=== PATIENT | male | born 1980 | race Caucasian/White ===

== ENCOUNTER → 2024-02-18 | Emergency (ER) | payer OTHER, SELFPAY ==
--- NOTE | 2024-02-18 07:40 | EDS_ITS ---
HPI History of Present Illness Informant: patient Narrative Narrative: Patient is a 43-year-old male with no reported significant past medical history. He reports he is right-hand dominant. He states he was at work roughly 1 hour ago when he was using a staple gun to attach plastic to an object. He states that he was holding the plastic with his left hand and as he went to use the stabled on his right his hand slipped and he put the staple into his left thumb. He denies any numbness tingling weakness or history of immunosuppression. He is unsure of his tetanus status. He informed the supervisors of the injury and with concern that it would be difficult to remove the staple or that he may need his tetanus updated he was sent to the hospital for evaluation. ROS ROS ED Constitutional Constitutional ED: Denies chills or fever(s) ENT ENT ED: Denies sore throat Cardiovascular Cardiovascular: Denies chest pain Respiratory/Chest Respiratory/Chest: Denies cough or dyspnea Gastrointestinal Gastrointestinal: Denies abdominal pain, diarrhea, nausea or vomiting Genitourinary Genitourinary ED: Denies dysuria Musculoskeletal Musculoskeletal: Reports other Details: Positive puncture wound left thumb ; Denies myalgias Integumentary Denies rash Neurologic Neurologic: Denies headache(s), paresthesias or weakness Hematologic/Lymphatic Hematologic/Lymphatic: Denies easy bleeding or easy bruising EXAM Physical Exam Const Positive well nourished and well developed General Appearance ED: well developed; Negative for pallor HEENT HEENT Narrative: Normocephalic atraumatic Eyes PERRL and EOMs intact bilaterally Neck supple Resp normal respiratory effort and clear to auscultation bilaterally Cardio regular rate and regular rhythm Extremity Extremity Narrative: Left upper extremity is neurovascularly intact; AIN/PIN are intact and normal. To the dorsal aspect of the left thumb over top the distal phalanx just proximal to the nailbed there is a retained singular staple consistent with history of trauma. There is minimal ooze of blood. No ligamentous or tendon injury noted. No bony deformity or joint effusion. No surrounding erythema or warmth or discharge or lymphangitic streaking. Remainder the exam is normal Neuro oriented x3, CN's II-XII intact bilaterally and no sensory deficits noted Sensorium / Orientation: alert Motor Exam: strength 5/5 throughout Psych mental status grossly normal Skin no rashes or lesions noted Skin Narrative: Puncture wound to the left thumb as documented above General Skin Exam: Negative for jaundice or pallor MDM MDM MDM Narrative Medical decision making narrative: Patient arrived to the ER in no acute distress with a singular wound to the left thumb. He is neurovascular intact without ligamentous or tendon injury and no signs of nailbed injury. Therefore this time I do not feel there is need for x- rays have low concern for bony involvement/fracture. I discussed with patient potential anesthesia in the form of a digital block prior to remove the foreign object but he states that it is not painful and he does not feel he needs anesthetic. Therefore the patient had the area cleaned with chlorhexidine and then staple remover's were used to remove the staple in 1 attempt and 1 complete piece. As the staple was removed and 1 complete piece of did not feel the need for an x-ray to make sure there is no retained foreign body. As the patient is not immunosuppressed I do not feel there is need for prophylactic antibiotics but his tetanus status will be updated secondary to the trauma. At this time as there is no arterial bleed no ligamentous or tendon injury no signs of bony involvement are nailbed injury and the foreign body was removed he is otherwise safe for discharge History & Record Review Discussion w/independent historian: Patient Discharge Plan Triage ED Provider: Eligio Maldonado Dx/Rx/DC Orders Clinical Impression: Puncture wound of left thumb Instructions: ED Puncture Wound (General) Primary Care Provider: Care Physician,No Primary Referrals: Care Physician,No Primary [Primary Care Provider] - Print Language: Kiswahili Disposition Disposition: Home, Self Care
== END | disposition home or self-care (01) ==
PROVIDERS: Emergency Provider Emergency Medicine; Visit Provider Emergency Medicine
DX: S61.042A Puncture wound with foreign body of left thumb without damage to nail, initial encounter (principal); W26.8XXA Contact with other sharp object(s), not elsewhere classified, initial encounter; Z23 Encounter for immunization
CPT/HCPCS: 90471; 90715; 99284